=== PATIENT | female | born 1975 ===

== ENCOUNTER → 2018-07-02 | Emergency (ER) | payer OTHER ==
[~2018-07-02] VITALS: Ht 172.7 cm; Wt 117.9 kg
[~2018-07-02] MED LIST: CATAFLAM50 MG PO; CEFUROXIME500 MG PO; FLEXERIL10 MG PO; KETO10TA2 PO; LOSARTAN POTASS50 MG; METOPROLOL SUCC50 MG; SYNTHROID137 MCG
== END | disposition home or self-care (01) ==
LOC: ER 00:57
DX: R00.2 Palpitations (principal)

== ENCOUNTER 2018-07-17 21:52 | Emergency (ER) | payer OTHER ==
[~2018-07-17] VITALS: Ht 172.7 cm; Wt 117.0 kg
[2018-07-18] MEDS ORDERED: MEDROLPACK PO (02:11)
[2018-07-18] MEDS ORDERED: FLONASE ALLERG9.9 ML NASAL (02:11)
[2018-07-18] MEDS ORDERED: MECLIZINE HCL25 MG PO (02:11)
== END 2018-07-18 02:24 ==
LOC: ER 21:52
DX: H81.13 Benign paroxysmal vertigo, bilateral (principal); R09.81 Nasal congestion; R42 Dizziness and giddiness

== ENCOUNTER 2019-10-04 08:29 | Emergency (ER) | payer OTHER ==
[~2019-10-04] VITALS: Ht 172.7 cm; Wt 124.7 kg
[~2019-10-04 08:29] MED LIST changes: +FLONASE ALLERG9.9 ML NASAL; +MECLIZINE HCL25 MG PO; +MEDROLPACK PO
[2019-10-04] MEDS ORDERED: MECLIZINE HCL12.5 MG (09:02)
== END 2019-10-04 12:24 | disposition home or self-care (01) ==
LOC: ER 08:29
DX: R42 Dizziness and giddiness (principal)

== ENCOUNTER 2020-04-27 16:14 | Emergency (ER) | payer OTHER ==
[~2020-04-27] VITALS: Ht 172.7 cm; Wt 113.4 kg
[~2020-04-27 16:14] MED LIST changes: +MECLIZINE HCL12.5 MG
[2020-04-27] MEDS ORDERED: CIPRO500 MG PO (16:36)
== END 2020-04-27 21:01 | disposition home or self-care (01) ==
LOC: ER 16:14
DX: L03.116 Cellulitis of left lower limb (principal); M79.672 Pain in left foot; S90.862S Insect bite (nonvenomous), left foot, sequela; Z03.818 Encounter for observation for suspected exposure to other biological agents ruled out; W57.XXXS Bitten or stung by nonvenomous insect and other nonvenomous arthropods, sequela

== ENCOUNTER 2021-01-26 21:44 | Emergency (ER) | payer OTHER ==
[~2021-01-26] VITALS: Ht 172.7 cm; Wt 117.9 kg
[~2021-01-26 21:44] MED LIST changes: +CIPRO500 MG PO
[2021-01-26] MEDS ORDERED: VITAMIN D310 MCG/1 M (22:02)
[2021-01-26] MEDS ORDERED: CRESTOR10 MG PO (22:02)
[2021-01-27] MEDS ORDERED: ACID REDUCER20 M1 PO (00:37)
== END 2021-01-27 00:42 | disposition home or self-care (01) ==
LOC: ER 21:44
DX: R10.13 Epigastric pain (principal); R07.89 Other chest pain